=== PATIENT | female | born 1960 | race Caucasian/White ===

== ENCOUNTER → 2016-09-23 | Outpatient (CLI) | payer OTHER ==
--- NOTE | 2016-09-23 10:23 | US ---
Sonography of the Right Popliteal Fossa Clinical History: 56-year-old female with right knee pressure and discomfort. Rule out Rivera cyst. ICD 10 Diagnostic Codes: M71.21 and M25.561. Technique: A linear 9 MHz transducer was used to sonographically evaluate the posteromedial popliteal fossa. Color Doppler was also used. Comparison Study: None. Findings: In the posteromedial aspect of the right popliteal fossa, there is an oval-shaped 2.1 x 0.9 x 2.1 cm anechoic simple Rivera cyst. There is no intrinsic septation. 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
--- NOTE | 2016-09-23 10:39 | DX ---
Right Knee , 3 views, including a sunrise view History: Pain without recent,, history of tibial rodding removed 2 years ago Findings: The medial and lateral knee joint cartilage spaces are symmetric and normal in width. There is no chondrocalcinosis or erosive change. A small cortical divot involving the mid weightbearing po rtion of the lateral femoral condyle is consistent with remote trauma. The abandoned proximal tibial lien tract and vacant transverse screw holes are visible, and have a bland appearance. There is a smal l knee joint effusion. On these sunrise view the patella is mildly laterally placed and mildly latera lly tilted in the distal femoral groove. There is mild hypertrophic change of the upper and lateral p ortions of the patellofemoral joint. The apex of the lower patellar cartilage is focally demineralize d. Impression: 1. 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 If symptoms persist despite a period of conservative therapy then MRI might be helpful to evaluat e the integrity of the patellofemoral joint cartilage.
== END ==
LOC: FIMAGING 09:25
PROVIDERS: ATTEND Physician Assistant
DX: M71.21 Synovial cyst of popliteal space [Baker], right knee (principal); M22.41 Chondromalacia patellae, right knee

== ENCOUNTER → 2017-08-17 | Outpatient (CLI) | payer OTHER | LOC: FIMAGING 08:49 | PROVIDERS: ATTEND Internal Medicine | DX: Z12.31 Encounter for screening mammogram for malignant neoplasm of breast (principal); R92.8 Other abnormal and inconclusive findings on diagnostic imaging of breast | CPT/HCPCS: G0202 ==

== ENCOUNTER → 2017-08-22 | Outpatient (CLI) | payer OTHER | LOC: FIMAGING 13:23 | PROVIDERS: ATTEND Internal Medicine Hematology & Oncology | DX: R92.8 Other abnormal and inconclusive findings on diagnostic imaging of breast (principal) ==

== ENCOUNTER → 2017-09-13 | Outpatient (CLI) | payer OTHER ==
[~2017-09-13] MED LIST: GADOBUTROL 10 ML VIAL IVP ONE
== END ==
LOC: FIMAGING 08:15
PROVIDERS: ATTEND Internal Medicine
DX: R92.8 Other abnormal and inconclusive findings on diagnostic imaging of breast (principal)
CPT/HCPCS: 0159T; 77059; A9585; C8908

== ENCOUNTER → 2018-08-20 | Outpatient (CLI) | payer OTHER | LOC: FIMAGING 11:06 | PROVIDERS: ATTEND Internal Medicine Hematology & Oncology | DX: Z12.31 Encounter for screening mammogram for malignant neoplasm of breast (principal) ==